=== PATIENT | male | born 1960 | race Caucasian/White ===

== ENCOUNTER 2016-05-30 09:31 | Emergency (ER) | payer OTHER ==
[2016-05-30 09:45] VITALS: TEMP 98.4
--- NOTE | 2016-05-30 09:54 | EDPHY ---
H & P Stated Complaint: SOB Time Seen by Provider: 05/30/16 09:46 HPI/ROS: CHIEF COMPLAINT: Dyspnea HISTORY OF PRESENT ILLNESS: The patient presents to the ED with complaints of progressive worsening dyspnea for the past several days, acutely worse over the past 24 hours. The patient reports a 10 lb weight gain over the past week. The patient does report a history of congestive heart failure. The patient was scheduled to see his bench repair technician Dr. Dev Anthony today. The patient denies chest pain. He denies asymmetric calf pain or swelling. He reports he has been compliant with his medications. The patient reports his symptoms are moderate to severe in nature. REVIEW OF SYSTEMS: A comprehensive 10 point review of systems is otherwise negative aside from elements mentioned in the history of present illness. Source: Patient Exam Limitations: No limitations - Personal History Current Tetanus/Diphtheria Vaccine: Yes Current Tetanus Diphtheria and Acellular Pertussis (TDAP): Yes - Medical/Surgical History Hx Asthma: Yes Hx Chronic Respiratory Disease: Yes Hx Diabetes: No Hx Cardiac Disease: Yes Hx Renal Disease: No Hx Cirrhosis: No Hx Alcoholism: Yes Hx HIV/AIDS: No Hx Splenectomy or Spleen Trauma: No Other PMH: PMH: chf, pneumonia, hypertension, neuropathy, cardiac surgery - Social History Smoking Status: Heavy smoker Alcohol Use: None Drug Use: None - Physical Exam Exam: General Appearance: Alert, no distress Eyes: Pupils equal and round no pallor or injection ENT, Mouth: Mucous membranes moist Respiratory: Rales bilateral lobes, tachypnea Cardiovascular: Regular rate and rhythm Gastrointestinal: Abdomen is soft and nontender, no masses, bowel sounds normal Neurological: A&O, normal motor function, normal sensory exam, normal cranial nerves Skin: Warm and dry, no rashes Musculoskeletal: Neck is supple nontender Extremities: Bilateral pedal edema Constitutional: Initial Vital Signs Temperature (C) 36.9 C 05/30/16 09:44 Heart Rate 91 05/30/16 09:44 Respiratory Rate 14 05/30/16 09:44 Blood Pressure 128/62 H 05/30/16 09:44 O2 Sat (%) 65 L 05/30/16 09:44 O2 Delivery Mode Non-Rebreather Mask O2 (L/minute) 15 Allergies/Adverse Reactions: No Known Allergies Allergy (Unverified 05/30/16 09:43) Home Medications: Medication Instructions Recorded Furosemide [Lasix 40 MG (*)] 40 mg PO DAILY #0 tab 01/11/16 Amiodarone HCl [Pacerone (*)] 200 mg PO DAILY 05/30/16 Aspirin [Aspirin 325 mg (*)] 325 mg PO DAILY 05/30/16 Diltiazem Cd [Cardizem ER 120 MG 120 mg PO DAILY 05/30/16 (*)] Metolazone [Zaroxolyn 5MG (*)] 2.5 mg PO DAILY 05/30/16 Metoprolol Succinate Xr [Toprol Xl 25 mg PO DAILY 05/30/16 25 mg (*)] Omeprazole [Prilosec 20 mg] 20 mg PO DAILY 05/30/16 Simvastatin [Zocor] 20 mg PO DAILY 05/30/16 Spironolactone 50 mg PO DAILY 05/30/16 Vitamin B Complex [B Complex] 1 each PO DAILY 05/30/16 levOFLOXACIN [Levaquin] 500 mg PO DAILY #10 tab 05/30/16 Medical Decision Making - Diagnostics EKG Interpretation: EKG: Complete interpretation has been separately recorded in the [employer] archive. Summary impression: Bifascicular block, questionable underlying atrial fibrillation Imaging: Portable Chest at 1040 hours History: Dyspnea. Comparison: Portable chest January 11, 2016, CT chest January 07, 2016. Findings: There is bibasilar consolidation, right greater than left, with a hazy right lung opacity suggesting effusion. Interstitial prominence appears slightly increased. Bullae, most prominent in the right lung apex, are again noted. There is no visible pneumothorax. Moderate cardiomegaly is stable to slightly increased, with mild central pulmonary vascular prominence. The bones are grossly stable. Impression: Cardiomegaly with mild increase in interstitial prominence and new bibasilar consolidation, right greater than left, with probable right pleural effusion, most likely related to CHF with bibasilar atelectasis. Underlying pneumonia cannot be excluded. ED Course/Re-evaluation: The patient presents to the ED with severe hypoxemia. I reviewed the patient's past medical records. He was intubated in December secondary to a pseudomonal infection. The patient does report moderate to severe dyspnea. The patient denies asymmetric calf pain or swelling. The patient reports he does not use oxygen on an outpatient basis. The patient was scheduled to see a bench repair technician today. The patient does report he continues add this to tobacco. The patient was noted to be markedly hypoxemic on room air with an oxygen saturation of 65%. The patient was brought immediately into resuscitation room where a non-rebreather face mask was applied. The patient adamantly refuses admission to the hospital despite his marked tachypnea and hypoxemia. The patient reports that he does have home oxygen. I do believe the patient's dyspnea is likely secondary to hypoxemia and not pneumonia. I discussed with the patient at length my recommendation for admission to the hospital. The patient is adamant about not wanting to be admitted. He is able to fully articulate that he is at heart attack, stroke, severe undiagnosed infection and . Our therapeutic case manager has spoken with the patient at length and he continues to refuse admission. We have made arrangements to try to increase his home oxygen level to a 8 L per minute face mask. The patient will be started on a prescription for antibiotics to cover for occult infection. The patient did receive Levaquin in the emergency department. We have attempted to optimize the patient's outpatient situation as best possible. At this point time the patient is refusing any further intervention. Our case management did meet with the patient to see if he would be amenable to having them evaluate possible medical clearance for the patient's out pocket financial needs. He has refused that intervention. The patient will be given a prescription for Levaquin. He has told me he plans to follow up with his primary care provider Dr. Danilo Wahl. The patient has signed an against medical advice form. Differential Diagnosis: Differential diagnosis considered includes asthma, bronchitis, pneumonia, heart failure, sepsis, severe sepsis - Data Points Laboratory Results: Laboratory Results 05/30/16 09:50 05/30/16 09:50 05/30/16 05/30/16 05/30/16 11:50 11:25 09:50 WBC RBC Hgb Hct MCV MCH MCHC RDW Plt Count MPV Neut % (Auto) Lymph % (Auto) [place] % (Auto) Eos % (Auto) Baso % (Auto) Nucleat RBC Rel Count Absolute Neuts (auto) Absolute Lymphs (auto) Absolute Monos (auto) Absolute Eos (auto) Absolute Basos (auto) Absolute Nucleated RBC Immature Gran % Immature Gran # Platelet Estimate Polychromasia Hypochromasia Microcytic Cells PT 15.9 SEC H SEC (12.0-15.0) INR 1.27 H (0.83-1.16) Puncture Site LEFT RADIAL Patient Temperature 37.0 DEGREES DEGREES pCO2 62 mmHg H mmHg (34-38) pO2 74 mmHg mmHg (65-75) Total CO2 35 mEq/L H mEq/L (23-27) ABG pH 7.34 L (7.35-7.45) ABG PO2/FiO2 Ratio 74 RATIO RATIO ABG O2 Saturation 93 % % (92-95) ABG Base Excess 5.7 mEq/L H mEq/L (-2.5-2.5) VBG Lactic Acid 0.8 mmol/L mmol/L (0.7-2.1) Total O2 Concentration 15.0 LITERS LITERS O2 Concentration % 100 % % (0-100) Sodium Potassium Chloride Carbon Dioxide Bicarbonate 33 mEq/L H mEq/L (22-26) Anion Gap BUN Creatinine Estimated GFR Glucose Calcium Troponin I NT-Pro-B Natriuret Pep 05/30/16 05/30/16 09:50 09:50 WBC 10.05 10^3/uL H 10^3/uL (3.80-9.50) RBC 6.37 10^6/uL 10^6/uL (4.40-6.38) Hgb 14.2 g/dL g/dL (13.7-17.5) Hct 48.4 % % (40.0-51.0) MCV 76.0 fL L fL (81.5-99.8) MCH 22.3 pg L pg (27.9-34.1) MCHC 29.3 g/dL L g/dL (32.4-36.7) RDW 24.9 % H % (11.5-15.2) Plt Count 273 10^3/uL 10^3/uL (150-400) MPV 9.5 fL fL (8.7-11.7) Neut % (Auto) 75.0 % H % (39.3-74.2) Lymph % (Auto) 11.4 % L % (15.0-45.0) [place] % (Auto) 11.7 % % (4.5-13.0) Eos % (Auto) 0.6 % % (0.6-7.6) Baso % (Auto) 0.7 % % (0.3-1.7) Nucleat RBC Rel Count 0.0 % % (0.0-0.2) Absolute Neuts (auto) 7.53 10^3/uL H 10^3/uL (1.70-6.50) Absolute Lymphs (auto) 1.15 10^3/uL 10^3/uL (1.00-3.00) Absolute Monos (auto) 1.18 10^3/uL H 10^3/uL (0.30-0.80) Absolute Eos (auto) 0.06 10^3/uL 10^3/uL (0.03-0.40) Absolute Basos (auto) 0.07 10^3/uL 10^3/uL (0.02-0.10) Absolute Nucleated RBC 0.00 10^3/uL 10^3/uL (0-0.01) Immature Gran % 0.6 % % (0.0-1.1) Immature Gran # 0.06 10^3/uL 10^3/uL (0.00-0.10) Platelet Estimate ADEQUATE (ADEQ) Polychromasia 1+ H Hypochromasia 1+ H Microcytic Cells 1+ H PT INR Puncture Site Patient Temperature pCO2 pO2 Total CO2 ABG pH ABG PO2/FiO2 Ratio ABG O2 Saturation ABG Base Excess VBG Lactic Acid Total O2 Concentration O2 Concentration % Sodium 132 mEq/L L mEq/L (134-144) Potassium 4.1 mEq/L mEq/L (3.5-5.2) Chloride 86 mEq/L L mEq/L (97-110) Carbon Dioxide 34 mEq/l H mEq/l (22-31) Bicarbonate Anion Gap 12 mEq/L mEq/L (8-16) BUN 11 mg/dL mg/dL (7-23) Creatinine 0.7 mg/dL mg/dL (0.7-1.3) Estimated GFR > 60 Glucose 95 mg/dL mg/dL (70-100) Calcium 9.2 mg/dL mg/dL (8.5-10.4) Troponin I 0.016 ng/mL ng/mL (0-0.034) NT-Pro-B Natriuret Pep 2700 pg/mL H pg/mL (0-125) Medications Given: Discontinued Medications Furosemide (Lasix Injection) 40 mg IVP EDNOW ONE Stop: 05/30/16 12:21 Last Admin: 05/30/16 12:26 Dose: 40 mg Levofloxacin (Levaquin) 500 mg PO EDNOW ONE PRN Reason: Protocol Stop: 05/30/16 13:38 Last Admin: 05/30/16 13:40 Dose: 500 mg Departure - Departure Disposition: Against Medical Advice Clinical Impression: Acute hypoxemic respiratory failure, Atrial fibrillation Condition: Critical Instructions: Using Oxygen at Home (ED) Additional Instructions: 1. Please follow up with your regular physician as scheduled. 2. Please return to the ED should he reconsider your decision not to be admitted to the hospital. You can be readmitted any point time should you reconsider your decision to go home. 3. Please follow up with the sales effectiveness manager you have been referred to. They are happy to see you in follow-up. 4. Please follow-up with your primary care provider Dr. Wahl for a recheck this week. 5. Please take antibiotics as directed. Referrals: Danilo Wahl MD [Medical Doctor] - As per Instructions Prescriptions: levOFLOXACIN [Levaquin] 500 mg PO DAILY #10 tab
--- NOTE | 2016-05-30 10:00 | CPEKG ---
Heart Rate: 86 RR Interval: 698 P-R Interval: 154 QRSD Interval: 174 QT Interval: 412 QTC Interval: 493 P [place]: 95 QRS [place]: 101 T Wave [place]: -60 EKG Severity - ABNORMAL ECG - EKG Impression: UNKNOWN RHYTHM, IRREGULAR RATE 68-97 EKG Impression: RBBB AND LPFB Electronically Signed By: Alex Young 30-May-2016 12:13:08
[2016-05-30 10:17] LABS: % IMMATURE GRANULYOCYTES 0.6 % (0.0-1.1); ABSOLUTE IMMATURE GRANULOCYTES 0.06 10^3/uL (0.00-0.10); ADD DIFF? NO; ADD MORPH? YES; ADD SCAN? NO; ATYPICAL LYMPHOCYTE FLAG 0 (0-99); FRAGMENT RBC FLAG 60 (0-99); HEMATOCRIT 48.4 % (40.0-51.0); HEMOGLOBIN 14.2 g/dL (13.7-17.5); LEFT SHIFT FLG 0 (0-99); LIPEMIA HEMOLYSIS FLAG 70 (0-99); MEAN CELL HEMOGLOBIN 22.3 pg (27.9-34.1); MEAN CELL HEMOGLOBIN CONCENTR. 29.3 g/dL (32.4-36.7); MEAN PLATELET VOLUME 9.5 fL (8.7-11.7); PLATELET CLUMPS FLAG 80 (0-99); PLATELET COUNT 273 10^3/uL (150-400); RED BLOOD CELL COUNT 6.37 10^6/uL (4.40-6.38)
[2016-05-30 10:18] LABS: INR 1.27 (0.83-1.16); PROTIME(PATIENT) 15.9 SEC (12.0-15.0)
[2016-05-30 10:19] LABS: RED CELL DISTRIBUTION WIDTH 24.9 % (11.5-15.2)
[2016-05-30 10:41] LABS: ANION GAP 12 mEq/L (8-16); CALCIUM 9.2 mg/dL (8.5-10.4); CARBON DIOXIDE 34 mEq/l (22-31); CHLORIDE 86 mEq/L (97-110); CREATININE 0.7 mg/dL (0.7-1.3); GLOMERULAR FILTRATION RATE > 60; GLUCOSE 95 mg/dL (70-100); POTASSIUM 4.1 mEq/L (3.5-5.2); SODIUM 132 mEq/L (134-144)
[2016-05-30 10:48] LABS: HYPOCHROMIA 1+; PLATELET ESTIMATE ADEQUATE (ADEQ); POLYCHROMASIA 1+
[2016-05-30 10:49] LABS: MICROCYTES 1+
[2016-05-30 10:53] LABS: TROPONIN I 0.016 ng/mL (0-0.034)
[2016-05-30 12:04] LABS: BASE EXCESS 5.7 mEq/L (-2.5-2.5); BICARBONATE 33 mEq/L (22-26); MEASURED OXYGEN SATURATION 93 % (92-95); PCO2 62 mmHg (34-38); PO2 74 mmHg (65-75); TCO2 35 mEq/L (23-27)
[2016-05-30 12:14] LABS: O2 CONCENTRATIION 100 % (0-100); P/F RATIO 74 RATIO
[2016-05-30] MEDS ORDERED: FUROSEMIDE 40 MG/4 ML VIAL IVP ONE (12:20)
[2016-05-30 12:55] VITALS: RESP 18
[2016-05-30 13:52] VITALS: BP 117/83; PULSE 92; O2SAT 96
== END 2016-05-30 13:51 | disposition left against medical advice (07) ==
DX: J96.01 Acute respiratory failure with hypoxia (principal); I48.91 Unspecified atrial fibrillation; J45.909 Unspecified asthma, uncomplicated; I10 Essential (primary) hypertension; F17.200 Nicotine dependence, unspecified, uncomplicated; Z79.82 Long term (current) use of aspirin
CPT/HCPCS: 96374

== ENCOUNTER → 2018-01-28 | Outpatient (CLI) | payer OTHER | LOC: BHLMT 13:30 | PROVIDERS: ATTEND Internal Medicine Interventional Cardiology | DX: I48.1 Persistent atrial fibrillation (principal); I50.32 Chronic diastolic (congestive) heart failure; I48.92 Unspecified atrial flutter; I27.81 Cor pulmonale (chronic); I27.20 Pulmonary hypertension, unspecified; I45.10 Unspecified right bundle-branch block; E78.5 Hyperlipidemia, unspecified; Q24.9 Congenital malformation of heart, unspecified | CPT/HCPCS: 93005-PO ==

== ENCOUNTER → 2018-02-20 | Outpatient (CLI) | payer OTHER | LOC: BHLMT 10:45 | PROVIDERS: ATTEND Internal Medicine Cardiovascular Disease | DX: I50.9 Heart failure, unspecified (principal); R55 Syncope and collapse | CPT/HCPCS: 93306-PO ==

== ENCOUNTER 2018-02-21 13:21 | Day surgery (SDC) | payer OTHER, MEDICAID ==
[2018-02-21] MEDS ORDERED: MIDAZOLAM 2 MG/2 ML VIAL IVP ONE (13:27)
[2018-02-21] MEDS ORDERED: fentaNYL 100 MCG/2 ML INJ IVP ONE (13:27)
[2018-02-21] MEDS ORDERED: NS 500 ML IV ONE (13:27)
[2018-02-21] MEDS ORDERED: BENZOCAINE UNIT DOSE SPRAY HURRICAINE MM ONE (13:27)
[2018-02-21] MEDS ORDERED: MIDAZOLAM 2 MG/2 ML VIAL ONE (14:14)
[2018-02-21] MEDS ORDERED: fentaNYL 100 MCG/2 ML INJ ONE (14:15)
[2018-02-21] MEDS ORDERED: PROPOFOL 200 MG/20 ML VIAL ONE (15:03)
[2018-02-21] MEDS ORDERED: ALBUTEROL HFA ANES ONLY 200 PUFFS/8.5 GM MDI IH ONE (15:08)
--- NOTE | 2018-02-21 15:09 | PDHPUP ---
History & Physical Update H&P update statement: This history and physical update is based on an assessment of the patient which was completed after admission or registration (within 24 hours), but prior to the surgery/procedure. H&P update: H&P reviewed & patient examined, no change in patient's condition since H&P completed
--- NOTE | 2018-02-21 15:12 | PDANEPAE ---
ANE Past Medical History - Pulmonary History Hx Oxygen in Use at Home: No Hx Sleep Apnea: No - Endocrine History Hx Diabetes: No ANE Review of Systems Review of Systems: ANE Patient History - Allergies Allergies/Adverse Reactions: No Known Allergies Allergy (Unverified 05/30/16 09:43) - Home Medications Home Medications: Amiodarone HCl [Pacerone (*)] 200 mg PO DAILY 05/30/16 [Last Taken 05/30/16] Aspirin [Aspirin 325 mg (*)] 325 mg PO DAILY 05/30/16 [Last Taken 05/30/16] Diltiazem Cd [Cardizem ER 120 MG (*)] 120 mg PO DAILY 05/30/16 [Last Taken 05/30] Metolazone [Zaroxolyn 5MG (*)] 2.5 mg PO DAILY 05/30/16 [Last Taken 05/30/16] Metoprolol Succinate Xr [Toprol Xl 25 mg (*)] 25 mg PO DAILY 05/30/16 [Last Taken 05/30/16] Omeprazole [Prilosec 20 mg] 20 mg PO DAILY 05/30/16 [Last Taken 05/30/16] Simvastatin [Zocor] 20 mg PO DAILY 05/30/16 [Last Taken 05/30/16] Spironolactone 50 mg PO DAILY 05/30/16 [Last Taken 05/30/16] Vitamin B Complex [B Complex] 1 each PO DAILY 05/30/16 [Last Taken 05/30/16] - Smoking Hx Smoking Status: Heavy smoker ANE Labs/Vital Signs - Vital Signs Height: 182.9 cm Weight: 78 kg ANE Physical Exam - Airway Neck exam: FROM Mallampati Score: Class 2 Mouth exam: poor dentition - Pulmonary Pulmonary: reduced air movement, expiratory wheeze - Cardiovascular Cardiovascular: irregularly irregular - ASA Status ASA Status: IV ANE Anesthesia Plan Anesthesia Plan: MAC
[2018-02-21] MEDS ORDERED: PERFLUTREN LIPID MICROSPHERES 1.1 MG/ML VIAL IV ONE (15:16)
[2018-02-21] MEDS ORDERED: PROPOFOL/EMULSION 500 MG/50 ML BOTTLE IV ONE (15:19)
--- NOTE | 2018-02-21 16:31 | POSTANESTH ---
Post Anesthetic Evaluation Cardiovascular Status: Normal, Stable, Similar to Pre-Op Cond Respiratory Status: Similar to Pre-op Cond. Level of Consciousness/Mental Status: Moderately Sleepy Pain Control: Adequate, Prn Tx Ordered Nausea/Vomiting Control: Adequate, Prn Tx Ordered Complications Possibly Related to Anesthesia: None Noted
--- NOTE | 2018-02-21 16:58 | ECHO ---
[email or web address] [address] Main: [phone] Fax: Transesophageal Echocardiography Name: YESENIA CHANG MR#: [id number] Study Date: 02/21/2018 Study Time: 02:45 PM Date of : 1960 Age: 57 year(s) Height: ( ) Weight: ( ) BSA: Gender: Male Examination: DEVAN Indication: Eval LV Fx, Hx of syncope, Question LV apical thrombus, Hx VSD repair Image Quality: Contrast: Requested by: Dion Delaney Heart Rate: Rhythm: Atrial fibrillation BP: / Procedure Staff [place] Machine Operator: Philip Chiang RDCS Reading Physician: Dion Delaney MD Requesting Provider: DEVAN Exam Details Conclusions: Low normal left ventricular systolic function. No LV apical thrombus. Severely dilated right ventricle. Moderately to severely reduced right ventricular function. The left atrium is severely dilated. An agitated saline study was performed and was negative for intracardiac shunting. The right atrium is severely dilated. Mild mitral valve leaflet calcification is present. Trivial mitral valve regurgitation. There is no significant aortic valve regurgitation. No aortic valve stenosis is present. Moderate tricuspid regurgitation is present. There is no obvious evidence of a reminant VSD by colorflow doppler. The rhythm is atrial fibrillation.. The questionable LV apiical thrombus seen on a transthoracic study one day prior was not seen on this study. Measurements: Chambers Valvular Assessment AV/MV Valvular Assessment TV/PV Normal Normal Normal Name Value Range Name Value Range Name Value Range Additional Measurements: Patient: YESENIA CHANG Study Date: 02/21/2018 Page 1 of 2 02:45 PM Findings: Left Ventricle: Low normal left ventricular systolic function. No LV apical thrombus. Right Ventricle: Severely dilated right ventricle. Moderately to severely reduced right ventricular function. Left Atrium: The left atrium is severely dilated. An agitated saline study was performed and was negative for intracardiac shunting. Right Atrium: The right atrium is severely dilated. Mitral Valve: Mild mitral valve leaflet calcification is present. Trivial mitral valve regurgitation. Aortic Valve: The aortic valve is tri-leaflet. There is no significant aortic valve regurgitation. No aortic valve stenosis is present. Tricuspid Valve: Moderate tricuspid regurgitation is present. Pulmonic Valve: The pulmonic valve is normal in appearance and function. Aorta: The aorta is normal. Pericardium: No pericardial effusion. Exam Comments: There is no obvious evidence of a reminant VSD by colorflow doppler. The rhythm is atrial fibrillation.. l1n (No Signature Object) Patient: YESENIA CHANG Study Date: 02/21/2018 Page 2 of 2 02:45 PM [id number]
== END 2018-02-21 17:06 | disposition home or self-care (01) ==
LOC: FCATH 13:21
PROVIDERS: ATTEND Internal Medicine Interventional Cardiology
PROC: B246ZZ4 Ultrasonography of Right and Left Heart, Transesophageal (ICD-10-PCS; principal; 2018-02-21)
DX: I50.32 Chronic diastolic (congestive) heart failure (principal); I27.20 Pulmonary hypertension, unspecified; I27.81 Cor pulmonale (chronic); I48.1 Persistent atrial fibrillation; I48.92 Unspecified atrial flutter; I45.10 Unspecified right bundle-branch block; E78.5 Hyperlipidemia, unspecified; Z87.74 Personal history of (corrected) congenital malformations of heart and circulatory system
CPT/HCPCS: J2250; J2704; J3010; Q9957

== ENCOUNTER → 2018-04-03 | Outpatient (CLI) | payer OTHER, MEDICAID | LOC: BHLMT 11:00 | PROVIDERS: ATTEND Internal Medicine Interventional Cardiology | DX: I48.91 Unspecified atrial fibrillation (principal) | CPT/HCPCS: 93225-PO; 93226-PO ==